=== PATIENT | female | born 1970 | race Hispanic/Latino ===

== ENCOUNTER 2020-05-10 21:51 | Emergency (ER) | payer SELFPAY ==
[2020-05-10] MEDS ORDERED: Albuterol 200 PUFF (6.7GM INHALER) ONE (22:46)
[2020-05-10 22:47] LABS: #Eosinphils 0.1 thou/uL (0.0-0.7); #Lymphocytes 1.1 thou/uL (1.20-3.40); #Monocytes 0.4 thou/uL (0.11-0.59); #Neutrophils 8.3 thou/uL (1.40-6.50); %Basophils 0.2 % (0.0-1.0); %Eosinophils 1.2 % (0.0-10.0); %Lymphocytes 10.7 % (21.0-51.0); %Monocytes 4.2 % (0.0-10.0); %Neutrophils 83.6 % (42.0-75.0); Hemoglobin 14.5 g/dL (12.0-16.0); Mean Corpuscular HGB CONC 34.5 g/dL (32.0-36.0); Mean Corpuscular Hemoglobin 31.9 pg (27.0-31.0); Mean Corpuscular Volume 92.3 fL (78.0-98.0); Mean Platelet Volume 8.1 fL (7.4-10.4); Platelet Count 292 thou/uL (130-400); RBC Distribution Width 11.8 % (11.5-14.5); Red Blood Cell (RBC) Count 4.54 mill/uL (4.20-5.40)
[2020-05-10 23:04] LABS: ALT (SGPT) 47 U/L (8-55); AST (SGOT) 44 U/L (5-34); Albumin 4.2 g/dL (3.5-5.0); Alkaline Phosphatase 86 U/L (40-110); Anion Gap 14 mmol/L (10-20); BUN (Urea Nitrogen) 10 mg/dL (7.0-18.7); Bilirubin, Total 1.1 mg/dL (0.2-1.2); Calc. Creatinine Clearance 0 mL/min (70-130); Calcium 8.6 mg/dL (7.8-10.44); Carbon Dioxide 23 mmol/L (22-29); Chloride 103 mmol/L (98-107); Estimated GFR-MDRD Greater than 90; Globulin 3.6 g/dL (2.4-3.5); Glucose 124 mg/dL (70-105); Lipase 14 U/L (8-78); Potassium 3.5 mmol/L (3.5-5.1); Protein, Total 7.8 g/dL (6.0-8.3); Sodium 136 mmol/L (136-145)
[2020-05-10 23:14] LABS: Bilirubin Negative (Negative); Blood, Urine Trace (Negative); Clarity Clear (Clear); Glucose, Urine (Dipstick) Normal (Negative); Ketone, Urine Negative (Negative); Leukocyte Negative Leu/uL (Negative); Nitrite Negative (Negative); Protein, Urine (Dipstick) Negative (Neg-Trace); RBC/HPF 0-3 HPF (0-3); Specific Gravity, Urine 1.004 (1.002-1.036); Squamous Epithelial 0-3 HPF (0-3); Urobilinogen Normal mg/dL (Less than 2); WBC/HPF 0-3 HPF (0-3); pH, Urine 5.5 (5.0-9.0)
[2020-05-10 23:16] LABS: Bacteria/HPF Rare-Few HPF (None Seen)
[2020-05-10] MEDS ORDERED: Magnesium 2 GM/50 ML BAG (IN WATER) ONE (23:17)
[2020-05-10] MEDS ORDERED: methylPREDNISolone Sod Succ/PF 125 MG/2 ML VIAL ONE (23:17)
--- NOTE | 2020-05-10 23:59 | CT ---
CT abdomen and pelvis with IV contrast HISTORY: Abdomen pain. FINDINGS: The lung bases are clear. Gallbladder not visible. Possibly surgically absent. Dystrophic c alcification associated with the right adrenal gland may be related to remote trauma. Solid organs are intact. No evidence of bowel obstruction or inflammation. Urinary bladder is unremarkable. Appendix is not in flamed. At the right adnexa is a large lobulated multicystic lesion measuring up to 9.2 cm x 5.0 cm greatest diameters. No soft tissue component evident. IMPRESSION : Very large complex right adnexal cystic mass. No acute inflammation. Please consider gynecologic eval uation.
[2020-05-11] MEDS ORDERED: Ketorolac Tromethamine 30 MG/ML VIAL ONE (02:10)
--- NOTE | 2020-05-11 07:45 | ULT ---
PRELIMINARY REPORT/[facility]/EMERGENCY AFTER HOURS PROCEDURE EXAM: US Pelvis, Complete. CLINICAL HISTORY: RLQ pain, partial hysterectomy, rt ov remains, r/o torsion TECHNIQUE: Transabdominal pelvic ultrasound (complete) with image documentation. COMPARISON: None provided. FINDINGS: UTERUS/CERVIX: Surgically absent RIGHT OVARY: Normal follicles. No adnexal mass. Normal blood flow. Measures 8.8 x 5.3 x 7.8 cm and demonstrates a 7.5 x 4.5 x 5.7 cm simple cyst and 3.1 x 2.3 x 2.3 cm complex cyst LEFT OVARY: Nonvisualized, possibly surgically absent. FREE FLUID: No free fluid. IMPRESSION: RIGHT ovarian cysts with no evidence for torsion ELECTRONICALLY SIGNED BY: Mac Crawford MD May 11, 2020 1:32:22 AM [employer] This report is intended for review by the ordering physician only, in accordance of law. If you recei ve this report in error, please call [facility] at [phone]. FINAL REPORT Final report by Dr. Plata Emergency after-hours study ULTRASOUND PELVIS: 05/11/2020 1:14 AM HISTORY: 49-year-old female with pelvic pain. Concern for right ovarian torsion. TECHNIQUE: Transabdominal transducer used to evaluate intrapelvic contents with grayscale, color-flow, and spect ral analysis. Endovaginal transducer was not used. FINDINGS: Uterus: Surgically absent. Left ovary: Not visualized. Right adnexa: There is a structure containing 2 cysts. The larger cyst is 7.5 x 4.5 x 5.7 cm. Adjacen t to it, by a thin band of tissue, the other cyst is 3.1 x 2.3 x 2.3 cm. There is blood flow demonstrated in the band the 2 cysts and in thin ovarian parenchyma adjacent to the c ysts. No major disagreement with preliminary report by [facility]. IMPRESSION: 1) Status post hysterectomy. 2) Either 1 large right ovarian cyst with septation, or 2 cysts adjacent to each other. In aggregate, total dimensions are 8.9 x 5.4 x 7.9 cm. 3) Demonstration of blood flow in the adjacent ovarian tissues. This does not necessarily rule out th e possibility of intermittent or mild torsion. 4) Recommend [employer] CANCELLATION CLERK consultation as clinically indicated. Transcribed Date/Time: 05/11/2020 8:13 AM
== END 2020-05-11 02:28 | disposition home or self-care (01) ==
LOC: ERS 21:51
DX: N83.201 Unspecified ovarian cyst, right side (principal); J45.901 Unspecified asthma with (acute) exacerbation
CPT/HCPCS: 74177; 76856; 80053; 81003; 81015; 83690; 84484; 85025; 85379; 93005; 93976; 96365; 96375; J1885; J2930; J3475